=== PATIENT | male | born 1950 | race Caucasian/White ===

== ENCOUNTER → 2022-07-08 | Outpatient (CLI) | payer SELFPAY ==
[~2022-07-08] MED LIST: AMOCLA875 PO
== END | disposition home or self-care (01) ==
LOC: LAB SHORT 13:36
DX: L08.9 Local infection of the skin and subcutaneous tissue, unspecified (principal)
CPT/HCPCS: 87070; 87075; 87205

== ENCOUNTER → 2022-07-08 | Outpatient (CLI) | payer SELFPAY ==
[2022-07-08 13:56] LABS: BASOPHILS ABSOLUTE AUTO 0.03 K/mm3 (0.00-0.23); BASOPHILS PERCENT AUTO 1 % (0-2); EOSINOPHILS PERCENT AUTO 0 % (0-6); Hematocrit 32.6 % (37.0-53.0); Hemoglobin 10.2 g/dL (13.5-17.5); IMMATURE GRAN ABSOLUTE AUTO 0.01 K/mm3 (0.00-0.10); IMMATURE GRAN PERCENT AUTO 0 % (0-1); LYMPHOCYTES PERCENT AUTO 11 % (21-46); MONOCYTES ABSOLUTE AUTO 0.53 K/mm3 (0.16-1.47); MONOCYTES PERCENT AUTO 8 % (4-13); Mean Corpuscular HGB 25.1 pg (26.0-34.0); Mean Corpuscular HGB Conc 31.3 g/dL (31.5-36.5); Mean Corpuscular Volume 80 fL (80-100); Mean Platelet Volume 9.9 fL (9.1-12.4); NEUTROPHILS PERCENT AUTO 80 % (41-73); Platelet Count 236 K/mm3 (150-400); RDW Coefficient Variation 14.6 % (11.7-14.2); RDW Standard Deviation 42.2 fL (35.1-46.3); Red Blood Cell Count 4.07 M/mm3 (4.30-5.90); White Blood Cell Count 6.37 K/mm3 (4.00-11.30)
[2022-07-08 14:06] LABS: Albumin, Blood 3.2 g/dL (3.4-5.0); Albumin/Globulin Ratio 0.7 (0.8-1.8); Bilirubin, Total 0.7 mg/dL (0.1-1.0); Bun/Creatinine Ratio 13.6 (12.0-20.0); Calcium, Blood 9.2 mg/dL (8.5-10.1); Creatinine, Blood 1.4 mg/dL (0.60-1.20); Globulin, Blood 4.5 g/dL (2.2-4.0); Total Protein, Blood 7.7 g/dL (6.4-8.2)
== END | disposition home or self-care (01) ==
LOC: LAB SHORT 13:52
PROVIDERS: Physician Assistant
DX: L08.9 Local infection of the skin and subcutaneous tissue, unspecified (principal)
CPT/HCPCS: 80053; 85025

== ENCOUNTER 2022-07-16 01:39 | Day surgery (SDC) | payer MEDICARE | END 2022-07-16 22:48 | disposition home or self-care (01) | LOC: WOUND 01:39 | DX: I87.311 Chronic venous hypertension (idiopathic) with ulcer of right lower extremity (principal); L97.812 Non-pressure chronic ulcer of other part of right lower leg with fat layer exposed; I73.9 Peripheral vascular disease, unspecified; I87.2 Venous insufficiency (chronic) (peripheral); L03.119 Cellulitis of unspecified part of limb | CPT/HCPCS: A9270; G0463 ==

== ENCOUNTER 2022-07-23 02:09 | Day surgery (SDC) | payer MEDICARE | END 2022-07-23 22:42 | disposition home or self-care (01) | LOC: WOUND 02:09 | DX: I87.311 Chronic venous hypertension (idiopathic) with ulcer of right lower extremity (principal); L97.212 Non-pressure chronic ulcer of right calf with fat layer exposed; L97.819 Non-pressure chronic ulcer of other part of right lower leg with unspecified severity; I87.2 Venous insufficiency (chronic) (peripheral); I73.9 Peripheral vascular disease, unspecified | CPT/HCPCS: A9270; G0463 ==

== ENCOUNTER 2022-08-05 02:08 | Day surgery (SDC) | payer MEDICARE | END 2022-08-05 22:50 | disposition home or self-care (01) | LOC: WOUND 02:08 | DX: I87.311 Chronic venous hypertension (idiopathic) with ulcer of right lower extremity (principal); L97.812 Non-pressure chronic ulcer of other part of right lower leg with fat layer exposed; L97.512 Non-pressure chronic ulcer of other part of right foot with fat layer exposed; L97.212 Non-pressure chronic ulcer of right calf with fat layer exposed; L97.819 Non-pressure chronic ulcer of other part of right lower leg with unspecified severity; I87.2 Venous insufficiency (chronic) (peripheral); I73.9 Peripheral vascular disease, unspecified | CPT/HCPCS: A9270; G0463 ==

== ENCOUNTER 2022-08-05 08:31 | Inpatient (IN) | payer MEDICARE ==
[~2022-08-05] VITALS: Ht 182.9 cm; Wt 91.3 kg
[2022-08-05 09:14] LABS: BASOPHILS ABSOLUTE AUTO 0.03 K/mm3 (0.00-0.23); BASOPHILS PERCENT AUTO 0 % (0-2); EOSINOPHILS PERCENT AUTO 0 % (0-6); Hematocrit 26.3 % (37.0-53.0); IMMATURE GRAN ABSOLUTE AUTO 0.02 K/mm3 (0.00-0.10); IMMATURE GRAN PERCENT AUTO 0 % (0-1); LYMPHOCYTES ABSOLUTE AUTO 0.76 K/mm3 (0.84-5.20); LYMPHOCYTES PERCENT AUTO 9 % (21-46); MONOCYTES ABSOLUTE AUTO 0.69 K/mm3 (0.16-1.47); MONOCYTES PERCENT AUTO 8 % (4-13); Mean Corpuscular HGB Conc 30.4 g/dL (31.5-36.5); Mean Corpuscular Volume 79 fL (80-100); Mean Platelet Volume 10.2 fL (9.1-12.4); NEUTROPHILS ABSOLUTE AUTO 7.06 K/mm3 (1.96-9.15); NEUTROPHILS PERCENT AUTO 82 % (41-73); Platelet Count 230 K/mm3 (150-400); RDW Coefficient Variation 14.7 % (11.7-14.2); RDW Standard Deviation 42.7 fL (35.1-46.3); Red Blood Cell Count 3.33 M/mm3 (4.30-5.90); White Blood Cell Count 8.56 K/mm3 (4.00-11.30)
[2022-08-05 09:31] LABS: Albumin, Blood 2.7 g/dL (3.4-5.0); Albumin/Globulin Ratio 0.6 (0.8-1.8); Bilirubin, Total 0.7 mg/dL (0.1-1.0); Bun/Creatinine Ratio 18.9 (12.0-20.0); Calcium, Blood 8.2 mg/dL (8.5-10.1); Creatinine, Blood 1.48 mg/dL (0.60-1.20); Globulin, Blood 4.2 g/dL (2.2-4.0); Total Protein, Blood 6.9 g/dL (6.4-8.2)
--- NOTE | 2022-08-05 14:47 | NUR ---
Pt brought to 342 via wheelchair from ED, he is ambulatory, able to be up ad kb, using a walker, he brought his walke from home. a/ox3, pleasant and cooperative with care, follows commands well, denies pain at this time, lungs are clear t/o, resp even and unlabored, no cough noted, hrr, no edema noted, radial pulses +2, cap refill <3 sec, vs stable, afebrile, piv 20g to rac, site is clear and patent, btx4, abd flat soft nontender, voids without diff, reports reg bm's, skin is c/w/d, except the rle has wounds that are wrapped in a dressing, no drainage noted, but is very odophorus, daniele, mike, oriented to room layout and call system, call light in reach.
[2022-08-05 19:23] VITALS: BP 119/73
--- NOTE | 2022-08-05 19:26 | NUR ---
pt had wound redressed on admit, Dr. Montoya was in to see him this evening, will possibly take him to surg tomorrow, explained to pt if infection is very deep may need to amputate leg. wound redressed and pictures are in the chart, no further changes this shift, call light in reach.
[2022-08-06] VITALS (17 sets, daily range): BP systolic 117–151; BP diastolic 64–83
--- NOTE | 2022-08-06 04:29 | NUR ---
SHIFT SUMMARY PT NPO SINCE MIDNIGHT, AWAITING POSSIBLE I AND D ALONG WITH A WOUND VAC TODAY. HE IS VERY ACTIVE IN THE ROOM, WALKING AROUND QUITE A BIT AT THE START OF THE SHIFT. HE HAS BEEN SLEEPING COMFORTABLY. HE DID C/O PAIN EARLY ON AND WAS MEDICATED PER THE EMAR. NO COMPLAINTS SINCE. WILL REPORT TO ONCOMING NURSE.
[2022-08-06 06:52] LABS: Albumin, Blood 2.3 g/dL (3.4-5.0); Albumin/Globulin Ratio 0.6 (0.8-1.8); Bilirubin, Total 0.6 mg/dL (0.1-1.0); Bun/Creatinine Ratio 17.8 (12.0-20.0); Calcium, Blood 7.8 mg/dL (8.5-10.1); Creatinine, Blood 1.46 mg/dL (0.60-1.20); Globulin, Blood 3.7 g/dL (2.2-4.0); Percent Saturation 7.6 % (20.0-50.0); Potassium, Blood 3.5 mmol/L (3.5-5.5)
[2022-08-06 06:53] LABS: BASOPHILS ABSOLUTE AUTO 0.03 K/mm3 (0.00-0.23); BASOPHILS PERCENT AUTO 0 % (0-2); EOSINOPHILS PERCENT AUTO 0 % (0-6); Hematocrit 24.3 % (37.0-53.0); Hemoglobin 7.5 g/dL (13.5-17.5); IMMATURE GRAN ABSOLUTE AUTO 0.05 K/mm3 (0.00-0.10); IMMATURE GRAN PERCENT AUTO 1 % (0-1); LYMPHOCYTES ABSOLUTE AUTO 0.75 K/mm3 (0.84-5.20); LYMPHOCYTES PERCENT AUTO 11 % (21-46); MONOCYTES ABSOLUTE AUTO 0.51 K/mm3 (0.16-1.47); MONOCYTES PERCENT AUTO 7 % (4-13); Mean Corpuscular HGB 24.2 pg (26.0-34.0); Mean Corpuscular HGB Conc 30.9 g/dL (31.5-36.5); Mean Corpuscular Volume 78 fL (80-100); Mean Platelet Volume 10.8 fL (9.1-12.4); NEUTROPHILS ABSOLUTE AUTO 5.64 K/mm3 (1.96-9.15); NEUTROPHILS PERCENT AUTO 81 % (41-73); Platelet Count 230 K/mm3 (150-400); RDW Standard Deviation 42.9 fL (35.1-46.3); RETICULOCYTE COUNT PERCENT 1.21 % (0.50-2.50); White Blood Cell Count 6.98 K/mm3 (4.00-11.30)
--- NOTE | 2022-08-06 14:01 | NUR ---
IV SITE RFA D&I/FLUSHED WITH 10NS/PATENT.
--- NOTE | 2022-08-06 14:48 | NUR ---
08/06/22 1448 Lou Saez PT ON SCHEDULED ABX.
--- NOTE | 2022-08-06 15:15 | NUR ---
SHIFT SUMMARY PT RESTING QUIETLY AT START OF SHIFT, BUT WOKE EASILY FOR REPORT. PT NPO FOR I&D AND WOUND VAC PLACEMENT ON RLE FOR NECROTIC CELLULITIS. PER REPORT, DRSG REPLACED ON NOC SHIFT AND REMAINED C/D/I; HOWEVER, WOUND RADIATED A VERY STRONG FOUL SMELLING ODOR. PT UP TO BTHRM INDEPENDENTLY USING FWW. PT TAKEN DOWN TO OR THIS AFTERNOON AT 1400. PT TO RETURN TO RM AFTER RECOVERY. LINENS CHANGED WHEN PT TAKEN DOWN.
--- NOTE | 2022-08-06 18:25 | NUR ---
1705 PT RETURNED FROM OR WITH WOUND VAC TO RLE. NO C/O. PT NOW SITTING UP TO EOB EATING DINNER. TOLERATING WELL. VSS; SEE CHART. CALL LT IN REACH.
--- NOTE | 2022-08-07 04:05 | NUR ---
SHIFT SUMMARY ADMITTED FOR RIGHT LEG ULCER/CELLULITIS. FULL CODE. I&D PERFORMED ON PREVIOUS SHIFT. IV ANTIB RX ARE SCHEDULED. IV FLUIDS INFUSING. WOUND VAC IN PLACE. ON RA. A&O X4, 1 ASSIST TO BSC DUE TO LINES AND TUBES. ADA DIET. LIVES WITH A FRIEND. WAS SEEING WOUND CLINIC OUTPT PREVIOUS TO ADMIT
[2022-08-07 04:17] VITALS: BP 117/72
[2022-08-07 05:36] LABS: BASOPHILS ABSOLUTE AUTO 0.01 K/mm3 (0.00-0.23); BASOPHILS PERCENT AUTO 0 % (0-2); EOSINOPHILS PERCENT AUTO 0 % (0-6); Hematocrit 22.5 % (37.0-53.0); IMMATURE GRAN ABSOLUTE AUTO 0.02 K/mm3 (0.00-0.10); IMMATURE GRAN PERCENT AUTO 0 % (0-1); LYMPHOCYTES ABSOLUTE AUTO 0.65 K/mm3 (0.84-5.20); LYMPHOCYTES PERCENT AUTO 8 % (21-46); MONOCYTES ABSOLUTE AUTO 0.59 K/mm3 (0.16-1.47); MONOCYTES PERCENT AUTO 7 % (4-13); Mean Corpuscular HGB 24.1 pg (26.0-34.0); Mean Corpuscular HGB Conc 31.1 g/dL (31.5-36.5); Mean Corpuscular Volume 78 fL (80-100); Mean Platelet Volume 10.3 fL (9.1-12.4); NEUTROPHILS ABSOLUTE AUTO 7.22 K/mm3 (1.96-9.15); NEUTROPHILS PERCENT AUTO 85 % (41-73); Platelet Count 241 K/mm3 (150-400); RDW Coefficient Variation 14.8 % (11.7-14.2); White Blood Cell Count 8.49 K/mm3 (4.00-11.30)
[2022-08-07 06:00] LABS: Albumin, Blood 2.2 g/dL (3.4-5.0); Albumin/Globulin Ratio 0.6 (0.8-1.8); Bilirubin, Total 0.5 mg/dL (0.1-1.0); Bun/Creatinine Ratio 20.1 (12.0-20.0); Calcium, Blood 8.1 mg/dL (8.5-10.1); Creatinine, Blood 1.39 mg/dL (0.60-1.20); Globulin, Blood 3.6 g/dL (2.2-4.0); Potassium, Blood 3.9 mmol/L (3.5-5.5); Total Protein, Blood 5.8 g/dL (6.4-8.2)
[2022-08-07 07:18] VITALS: BP 123/80
[2022-08-07 11:47] LABS: Hematocrit 25.6 % (37.0-53.0); Hemoglobin 7.8 g/dL (13.5-17.5)
[2022-08-07 14:24] VITALS: BP 110/95
--- NOTE | 2022-08-07 16:38 | NUR ---
PT IS A/OX3, PLEASANT AND COOPERATIVE. THE PT IS UP WITH MINIMAL ASSIST TO THE SIDE OF THE BED. THE PT HAS BEEN UP ON THE SIDE OF THE BED FOR MOST OF THE DAY. WOUND VAC ATTATCHED/SECURE AND APPEARS TO BE WORKING WELL. THE PT DENIED ANY PAIN SO FAR THIS SHIFT. PT APPEARS TO BE BREATHING EASILY ON RA AT THIS TIME. CALL LIGHT IN REACH. WILL CONTINUE TO MONITOR AND ASSESS FOR CHANGES
[2022-08-07 20:43] VITALS: BP 136/79
[2022-08-08] VITALS (10 sets, daily range): BP systolic 121–139; BP diastolic 62–81
--- NOTE | 2022-08-08 03:55 | NUR ---
SHIFT SUMMARY PT AOX4, CALLS WELL. HE C/O PAIN EARLY IN THE SHIFT AND MEDICATED PER THE EMAR. HE SAID IT PROVIDED GREAT RELIEF. HE HAS HAD NO OTHER COMPLAINTS AND HAS BEEN SLEEPING THROUGHOUT THE NIGHT. CALL LIGHT WITHIN REACH, BED IN THE LOWEST POSITION. WILL REPORT TO ONCOMING NURSE.
[2022-08-08 06:01] LABS: BASOPHILS ABSOLUTE AUTO 0.02 K/mm3 (0.00-0.23); BASOPHILS PERCENT AUTO 0 % (0-2); EOSINOPHILS PERCENT AUTO 0 % (0-6); Hematocrit 20.7 % (37.0-53.0); Hemoglobin 6.3 g/dL (13.5-17.5); IMMATURE GRAN ABSOLUTE AUTO 0.05 K/mm3 (0.00-0.10); IMMATURE GRAN PERCENT AUTO 1 % (0-1); LYMPHOCYTES ABSOLUTE AUTO 0.86 K/mm3 (0.84-5.20); LYMPHOCYTES PERCENT AUTO 11 % (21-46); MONOCYTES ABSOLUTE AUTO 0.56 K/mm3 (0.16-1.47); MONOCYTES PERCENT AUTO 7 % (4-13); Mean Corpuscular HGB 23.8 pg (26.0-34.0); Mean Corpuscular HGB Conc 30.4 g/dL (31.5-36.5); Mean Corpuscular Volume 78 fL (80-100); Mean Platelet Volume 10.3 fL (9.1-12.4); NEUTROPHILS PERCENT AUTO 81 % (41-73); Platelet Count 259 K/mm3 (150-400); RDW Coefficient Variation 15.1 % (11.7-14.2); RDW Standard Deviation 42.8 fL (35.1-46.3); Red Blood Cell Count 2.65 M/mm3 (4.30-5.90); White Blood Cell Count 7.89 K/mm3 (4.00-11.30)
[2022-08-08 07:20] LABS: Albumin, Blood 2.1 g/dL (3.4-5.0); Albumin/Globulin Ratio 0.6 (0.8-1.8); Bilirubin, Total 0.4 mg/dL (0.1-1.0); Bun/Creatinine Ratio 17.2 (12.0-20.0); Creatinine, Blood 1.45 mg/dL (0.60-1.20); Globulin, Blood 3.4 g/dL (2.2-4.0); Potassium, Blood 3.5 mmol/L (3.5-5.5); Total Protein, Blood 5.5 g/dL (6.4-8.2)
--- NOTE | 2022-08-08 11:48 | NUR ---
WOUND CARE RLE WOUND VAC IS SET TO 120 MMHG WITH GOOD SEAL. VAC PLACED TU08/06/22. SPOKE WITH DR. RUBI REGARDING FIRST VAC CHANGE. RECIEVED ORDER FOR FIRST CHANGE ON Fri08/09/22 TO ALLOW FOR IDEAL FRI, FRI, FRI CHANGES
[2022-08-08 13:28] LABS: Hematocrit 25.5 % (37.0-53.0); Hemoglobin 7.9 g/dL (13.5-17.5)
--- NOTE | 2022-08-08 19:48 | NUR ---
SHIFT SUMMARY PT IS ALERT AND ORIENTED X3. REPORTS BEING ANXIOUS BUT EASY TO CALM. WOUND CARE PLANNED FOR TOMORROW. ONE PERSON ASSIST. BED IS IN THE LOWEST POSITION. CALL LIGHT IS IN REACH
--- NOTE | 2022-08-09 06:36 | NUR ---
WOUND VAC EFFECTIVE FOR MOST OF SHIFT, NEAR END OF SHIFT SEAL WAS BROKEN DUE TO PATIENT MOVEMENT. I APPLIED TAPE TO RESEAL THE SMALL LEAK NEAR ONE OF THE WOUNDS, FUNCTIONING PROPERLY AT THE MOMENT. AO, BEATRIS, SBA DUE TO LINES, WOUND VAC. NO SIGNIFICANT CHANGES DURING SHIFT.
[2022-08-09 07:14] LABS: BASOPHILS ABSOLUTE AUTO 0.04 K/mm3 (0.00-0.23); BASOPHILS PERCENT AUTO 1 % (0-2); EOSINOPHILS PERCENT AUTO 0 % (0-6); Hematocrit 25.7 % (37.0-53.0); IMMATURE GRAN ABSOLUTE AUTO 0.04 K/mm3 (0.00-0.10); IMMATURE GRAN PERCENT AUTO 1 % (0-1); LYMPHOCYTES ABSOLUTE AUTO 0.94 K/mm3 (0.84-5.20); LYMPHOCYTES PERCENT AUTO 11 % (21-46); MONOCYTES ABSOLUTE AUTO 0.55 K/mm3 (0.16-1.47); MONOCYTES PERCENT AUTO 6 % (4-13); Mean Corpuscular HGB 24.5 pg (26.0-34.0); Mean Corpuscular HGB Conc 31.1 g/dL (31.5-36.5); Mean Corpuscular Volume 79 fL (80-100); Mean Platelet Volume 9.8 fL (9.1-12.4); NEUTROPHILS ABSOLUTE AUTO 6.98 K/mm3 (1.96-9.15); NEUTROPHILS PERCENT AUTO 82 % (41-73); Platelet Count 293 K/mm3 (150-400); RDW Coefficient Variation 15.2 % (11.7-14.2); RDW Standard Deviation 43.3 fL (35.1-46.3); Red Blood Cell Count 3.27 M/mm3 (4.30-5.90); White Blood Cell Count 8.55 K/mm3 (4.00-11.30)
[2022-08-09 07:31] LABS: Albumin, Blood 2.4 g/dL (3.4-5.0); Albumin/Globulin Ratio 0.6 (0.8-1.8); Bilirubin, Total 0.4 mg/dL (0.1-1.0); Bun/Creatinine Ratio 15.5 (12.0-20.0); Calcium, Blood 8.3 mg/dL (8.5-10.1); Creatinine, Blood 1.42 mg/dL (0.60-1.20); Globulin, Blood 3.8 g/dL (2.2-4.0); Potassium, Blood 3.5 mmol/L (3.5-5.5); Total Protein, Blood 6.2 g/dL (6.4-8.2)
[2022-08-09 07:37] VITALS: BP 134/82
--- NOTE | 2022-08-09 13:01 | NUR ---
VERIFIED WITH DR BRUMFIELD. OK TO BEAR WEIGHT TOLORATED ON LRE.
--- NOTE | 2022-08-09 14:21 | NUR ---
WOUND CARE RLE WOUND VAC DRESSING CHANGED. PHOTOS AND MEASUREMENTS IN HARD CHART. RLE ANTERIOR WOUND FOAM SUTURED TO SKIN. 10 SUTURES REMOVED. WOUND CLEANS WITH NS. TWO LARGE FOAM KITS AND ONE Y-CONNECTOR USED. VAC SET TO CONTUNUOUS 120MMHG. PT TOLEREATED WELL.
[2022-08-09] MEDS ORDERED: CEPH500 PO (14:37)
[2022-08-09] MEDS ORDERED: VISBIOME 112.51 EACH PO (14:38)
[2022-08-09] MEDS ORDERED: CILO100 PO (14:38)
[2022-08-09 14:43] VITALS: BP 123/87
--- NOTE | 2022-08-09 19:12 | NUR ---
LATE ENTRY- DISCHARGE 1700 DISCHARGED HOME. PT FRIEND AT BEDSIDE. ALERT AND ORIENTED X 3 WITH CONFUSION/SHORT TERM MEMORY FRUSTRATIONS. PT SENT HOME WITH NEW WOUND VAC. DISCUSSED DISCHARGE INSTRUCTIONS WITH PT. PROVIDED WRITTEN INSTRUCTIONS ON NEW VAC AND DISCHARGE CARE PLAN. PT WILL FOLLOW UP WITH WOUND CARE.
== END 2022-08-09 17:24 | disposition home health service (06) | DRG 264 ==
LOC: ER 08:31 → MEDS 08:32 → ENPENDDIS 08-09 13:42 → MEDS 08-09 17:24
PROVIDERS: Family Medicine; Orthopaedic Surgery; Physician Assistant; ADMIT Hospitalist
PROC: 0JBN0ZZ Excision of Right Lower Leg Subcutaneous Tissue and Fascia, Open Approach (ICD-10-PCS; principal; 2022-08-06 14:30)
PROC: 30233N1 Transfusion of Nonautologous Red Blood Cells into Peripheral Vein, Percutaneous Approach (ICD-10-PCS; 2022-08-08)
DX: I96 Gangrene, not elsewhere classified (principal); L97.919 Non-pressure chronic ulcer of unspecified part of right lower leg with unspecified severity; L03.115 Cellulitis of right lower limb; N17.9 Acute kidney failure, unspecified; F17.210 Nicotine dependence, cigarettes, uncomplicated; R73.03 Prediabetes; D50.9 Iron deficiency anemia, unspecified; I87.2 Venous insufficiency (chronic) (peripheral); N18.31 Chronic kidney disease, stage 3a; B95.61 Methicillin susceptible Staphylococcus aureus infection as the cause of diseases classified elsewhere; D63.1 Anemia in chronic kidney disease; F12.90 Cannabis use, unspecified, uncomplicated; Z87.81 Personal history of (healed) traumatic fracture; Z71.6 Tobacco abuse counseling; Z98.890 Other specified postprocedural states
CPT/HCPCS: 36415; 73701; 80053; 82330; 82728; 83036; 83540; 83550; 83735; 85014; 85018; 85025; 85045; 86850; 86900; 86901; 86923; 87070; 87075; 87205; 93005; 93010; 96361; 96374; 96376; 97116; 97162; 99285-25; A9270; G0378; J0690; J2250; J2704; J2765; J3010; J7120; P9016; Q9967

== ENCOUNTER 2022-08-14 00:35 | Day surgery (SDC) | payer MEDICARE ==
[~2022-08-14 00:35] MED LIST changes: +CEPH500 PO; +CILO100 PO; +VISBIOME 112.51 EACH PO
== END 2022-08-14 22:54 | disposition home or self-care (01) ==
LOC: WOUND 00:35
DX: I87.311 Chronic venous hypertension (idiopathic) with ulcer of right lower extremity (principal); L97.212 Non-pressure chronic ulcer of right calf with fat layer exposed; L97.819 Non-pressure chronic ulcer of other part of right lower leg with unspecified severity; I87.2 Venous insufficiency (chronic) (peripheral); I73.9 Peripheral vascular disease, unspecified
CPT/HCPCS: A9270